=== PATIENT | female | born 1955 | race Caucasian/White ===

== ENCOUNTER → 2016-08-22 | Outpatient (CLI) | payer OTHER ==
[~2016-08-22] MED LIST: ESOM20CA PO; PANT40GR PO
== END | disposition home or self-care (01) ==
LOC: CFH 07:31
PROVIDERS: ATTEND Family Medicine
DX: K21.9 Gastro-esophageal reflux disease without esophagitis (principal)
CPT/HCPCS: 74241

== ENCOUNTER 2020-02-18 18:13 | Observation (INO) | payer OTHER ==
[~2020-02-18] VITALS: Ht 165.1 cm; Wt 111.8 kg
[2020-02-18 19:26] LABS: ALANINE AMINOTRANSFERASE 132 U/L (12-78); ALBUMIN 3.9 g/dL (3.4-5.0); ANION GAP 7 mmol/L (5-15); CALCIUM 9.2 mg/dL (8.5-10.1); CHLORIDE 102 mmol/L (98-107); CREATININE 1.08 mg/dL (0.55-1.02)
[2020-02-18 19:28] LABS: ALKALINE PHOSPHATASE 80 U/L (45-117); BILIRUBIN,TOTAL 0.7 mg/dL (0.2-1.0); TOTAL PROTEIN 8.2 g/dL (6.4-8.2)
[2020-02-18] MEDS ORDERED: ONDANSETRON 2MG/ML, 2ML IVPush ONE (20:00)
[2020-02-18] MEDS ORDERED: MORPHINE SULFATE 4 MG/ML, 1ML IVPush PRN ×2 (20:00→21:30)
[2020-02-18] MEDS ORDERED: SODIUM CHLORIDE FLUSH 10ML SYR IVF ONE (20:00)
--- NOTE | 2020-02-18 20:04 | NUR ---
Patient presents to ER c/o low quad abd pain since yesterday. Patient has never experienced this pain before. She was seen at today for same and they suggested her come to ER. SHe had a UA done there which they said was clean. C/o waves of nausea. Denies vomiting. Had one episode of diarrhea but states she thinks it is from the prune juice she had. Patient states she is having a gastric sleeve surgery soon therefore she has not had any solid foods. Patient is in NAD. Respirations even and unlabored.
--- NOTE | 2020-02-18 20:07 | NUR ---
First contact with patient at 1999.
--- NOTE | 2020-02-18 20:07 | NUR ---
Patient also c/o low back pain.
[2020-02-18] MEDS ORDERED: ONDANSETRON 2MG/ML, 2ML ONE (20:19)
[2020-02-18] MEDS ORDERED: MORPHINE SULFATE 4 MG/ML, 1ML ONE (20:19)
[2020-02-18 20:21] LABS: BASOPHILS % (AUTO) 0 % (0-1); EOSINOPHILS % (AUTO) 0 % (1-7); LYMPHOCYTES % (AUTO) 9 % (22-44); MEAN CORPUSCULAR HEMOGLOBIN 29.8 pg (27.0-34.8); MEAN CORPUSCULAR HGB CONC 33.3 g/dL (32.4-35.8); MEAN PLATELET VOLUME 10.2 fL (7.4-10.4); MONOCYTES % (AUTO) 7 % (2-9); NEUTROPHILS % (AUTO) 84 % (42-75); PLATELET COUNT 245 x10^3/uL (130-400); RED BLOOD COUNT 4.83 x10^6/uL (3.82-5.3); RED CELL DISTRIBUTION WIDTH 12.9 % (9.6-15.2)
[2020-02-18 20:28] LABS: MD NO
[2020-02-18] MEDS ORDERED: OMNIPAQUE 350 MG/ML, 100ML BOTTLE ONE (20:54)
[2020-02-18] MEDS ORDERED: ONDANSETRON 2MG/ML, 2ML IVPush PRN (21:30)
[2020-02-18] MEDS ORDERED: PROMETHAZINE 25 MG/ML, 1ML IM PRN (21:30)
[2020-02-18] MEDS ORDERED: SODIUM CHLORIDE 0.9% 1,000ML IVBOLUS ONE (21:30)
[2020-02-18] MEDS ORDERED: SODIUM CHLORIDE FLUSH 10ML SYR IVF PRN (21:30)
[2020-02-18] MEDS ORDERED: SODIUM CHLORIDE 0.9% 1,000 ML IV ONE (21:30)
[2020-02-18] MEDS ORDERED: PIPERACILLIN/TAZO/PMX 3.375GM 50 ML IV ONE (21:30)
--- NOTE | 2020-02-18 21:40 | NUR ---
Per ERP Wilber, no blood cultures required prior to abx admin.
[2020-02-18] MEDS ORDERED: PIPERACILLIN/TAZO/PMX 3.375GM 50 ML ONE (21:47)
--- NOTE | 2020-02-18 21:47 | NUR ---
COVID swab collected and walked to lab.
--- NOTE | 2020-02-18 22:30 | NUR ---
Report given to JARRELL Moss. Patient to be tranferred to room 459.
[2020-02-18] MEDS ORDERED: BUPIVACAINE/PF 0.25% ONE (22:52)
[2020-02-18 23:17] VITALS: BP 117/73
[2020-02-19 00:34] LABS: MICROSCOPIC NOT IND
[2020-02-19 02:00] VITALS: BP 135/76
[2020-02-19] MEDS ORDERED: BUPIVACAINE/PF-EPI 0.25% 1:200K IM ONE (05:00)
[2020-02-19] MEDS ORDERED: FENTANYL PF 100 MCG/2ML ONE (05:58)
[2020-02-19] MEDS ORDERED: PROPOFOL 10 MG/ML, 20ML ONE (06:01)
[2020-02-19] MEDS ORDERED: DEXAMETHASONE 4 MG/ML, 1ML ONE (06:01)
[2020-02-19] MEDS ORDERED: NEOSTIGMINE 1 MG/ML, 10ML ONE (06:01)
[2020-02-19] MEDS ORDERED: GLYCOPYRROLATE 0.2MG/1ML, 5ML ONE (06:01)
[2020-02-19] MEDS ORDERED: SUCCINYLCHOLINE 20 MG/ML, 10ML ONE (06:01)
[2020-02-19] MEDS ORDERED: CEFAZOLIN 1,000 MG ONE (06:01)
[2020-02-19] MEDS ORDERED: ONDANSETRON 2MG/ML, 2ML ONE (06:01)
[2020-02-19] MEDS ORDERED: ROCURONIUM 10MG/ML,5ML ONE (06:01)
[2020-02-19] MEDS ORDERED: CEFOTETAN PMX 1GM/50ML 50 ML ONE ×2 (06:11)
[2020-02-19] MEDS ORDERED: SUGAMMADEX 200 MG/2 ML IVPush ONE (06:19)
[2020-02-19] MEDS ORDERED: KETOROLAC 30 MG/1 ML ONE (06:25)
[2020-02-19] MEDS ORDERED: HYDROmorphone 1 MG/ML, 1ML INJ IVPush PRN (06:30)
[2020-02-19] MEDS ORDERED: LABETALOL 5MG/ML, 20ML IV PRN (06:30)
[2020-02-19] MEDS ORDERED: hydrALAzine 20 MG/ML, 1ML IV PRN (06:30)
[2020-02-19] MEDS ORDERED: PROMETHAZINE 25 MG SUPP PR PRN (06:30)
[2020-02-19] MEDS ORDERED: FENTANYL PF 100 MCG/2ML IV PRN (06:30)
[2020-02-19] MEDS ORDERED: PROMETHAZINE 25 MG/ML, 1ML IVPush PRN (06:30)
[2020-02-19] MEDS ORDERED: OXYcodone 5 MG/5 ML ORAL.SOL UDC PO PRN (06:30)
[2020-02-19] MEDS ORDERED: ONDANSETRON 2MG/ML, 2ML IVPush PRN ×2 (06:30→08:00)
[2020-02-19] MEDS ORDERED: ACETAMINOPHEN 325 MG TABLET PO PRN (06:30)
[2020-02-19] MEDS ORDERED: ACETAMINOPHEN 650 MG/20.3 ML UDC ONE (06:49)
[2020-02-19] MEDS ORDERED: OXYcodone 5 MG/5 ML ORAL.SOL UDC ONE (06:49)
[2020-02-19] MEDS ORDERED: KETOROLAC 30 MG/1 ML IVPush PRN (08:00)
[2020-02-19] MEDS ORDERED: morphine SULFATE 10 MG/ML, 1ML IVPush PRN (08:00)
[2020-02-19] MEDS ORDERED: LACTATED RINGERS 1,000 ML IV SCH (08:00)
[2020-02-19] MEDS: HYDROcodone/APAP 5/325 TABLET PO PRN ×2 (11:18→15:37)
[2020-02-19] MEDS ORDERED: FLU VACC QS2020-21(6MOS UP)/PF 60MCG/0.5 ML SYR IM ONE (13:00)
[2020-02-19] MEDS ORDERED: HYDR-3237 PO (15:25)
[2020-02-19] MEDS ORDERED: ONDANSETRON ODT 4 MG ONE (15:31)
[2020-02-19 15:49] VITALS: BP 106/61
== END 2020-02-19 16:27 | disposition home or self-care (01) ==
LOC: ED 21:04 → INTOOBSV 22:45 → 4NE 22:45
PROVIDERS: ADMIT Surgery; ATTEND Surgery
DX: K35.80 Unspecified acute appendicitis (principal); Z20.828 Contact with and (suspected) exposure to other viral communicable diseases; E03.9 Hypothyroidism, unspecified; K21.9 Gastro-esophageal reflux disease without esophagitis; E78.5 Hyperlipidemia, unspecified; E66.01 Morbid (severe) obesity due to excess calories; I25.10 Atherosclerotic heart disease of native coronary artery without angina pectoris; Z98.84 Bariatric surgery status; Z79.899 Other long term (current) drug therapy; Z23 Encounter for immunization
CPT/HCPCS: 36415; 44970; 74177; 80053; 81003; 83690; 85025; 87635; 88304; 90471; 90686; 93005; 96361; 96365; 96375; 96376; 99285; G0378; J0330; J0690; J1100; J1885; J2270; J2405; J2543; J2704; J2710; J3010; J7030; Q9967